=== PATIENT | male | born 1945 | race Caucasian/White ===

== ENCOUNTER 2022-11-12 12:35 | Emergency (ER) | payer SELFPAY ==
[2022-11-12 12:51] VITALS: BP 139/76; PULSE 73; RESP 16; TEMP 36.7; O2SAT 97; BMI 25.7
[2022-11-12 13:58] LABS: Basophils # 0.1 10^3/uL (0.0-0.1); Basophils % 1.1 %; Eosinophils # 0.1 10^3/uL (0.0-0.8); Eosinophils % 1.7 %; Hemoglobin 15.2 g/dL (11.7-16.6); Lymphocytes % 31.3 %; Mean Corpuscular Hemoglobin 30.2 pg (28.0-34.0); Mean Corpuscular Volume 91.3 fl (80-94); Mean Platelet Volume 9.4 fL (7.4-10.4); Monocytes # 0.5 10^3/uL (0.2-0.9); Monocytes % 7.3 %; Neutrophils # 3.68 10^3/uL (1.8-7.7); Neutrophils % 58.4 %; Nucleated Red Blood Cells % 0 %; Platelet Count 211 10^3/cmm (130-400); Red Blood Count 5.04 10^6/uL (4.1-5.3); Red Cell Distribution Width 12.5 % (12.1-15.1); White Blood Count 6.3 10^3/uL (4.0-10.0)
[2022-11-12 14:23] LABS: Alanine Aminotransferase 52 U/L (0-41); Albumin Level 4.3 g/dL (3.5-5.2); Alkaline Phosphatase 96 U/L (40-130); Anion Gap 16.2 (5-19); Aspartate Amino Transferase 24 U/L (0-40); Blood Urea Nitrogen 14 mg/dL (8-23); Calcium 9.1 mg/dL (8.5-10.5); Carbon Dioxide 25 mmol/L (22-29); Chloride 102 mmol/L (98-107); Globulin 2.9 g/dL (1.3-4.6); Glucose 93 mg/dL (65-115); Lipase 22 U/L (13-60); Osmolality Calculated 288 mOsm/kg (285-295); Potassium 4.2 mmol/L (3.5-5.1); Sodium 139 mmol/L (136-145); Total Protein 7.2 g/dL (6.6-8.7)
--- NOTE | 2022-11-12 14:36 | XR_ITS ---
WS: [id number] XR lumbar spine 2-3V* [id number] REASON FOR EXAM: injury FINDINGS: There are 4 lumbar vertebrae without ribs. Mild rotatory scoliosis convex right. Relatively normal lordosis. Mild compression deformity of the first ribbed lumbar vertebrae. Moderate narrowing of the disc space at the lumbosacral junction. No significant listhesis. IMPRESSION: Compression deformity as above. Unknown chronicity. More likely chronic.
--- NOTE | 2022-11-12 14:36 | XR_ITS ---
WS: [id number] XR thoracic spine 3V* [id number] REASON FOR EXAM: injury FINDINGS: Mild thoracic scoliosis convex left. No significant kyphosis. Mild compression deformity of the last rib vertebral body. (Small hypoplastic rib on the left) Disc spaces are intact with minimal narrowing in the midthoracic spine associated with small osteophy jina. IMPRESSION: Mild compression deformity as above. Unknown chronicity. Most likely chronic.
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
== END 2022-11-12 16:10 | disposition home or self-care (01) ==
PROVIDERS: Emergency Provider Emergency Medicine
DX: S29.012A Strain of muscle and tendon of back wall of thorax, initial encounter (principal); V03.00XA Pedestrian on foot injured in collision with car, pick-up truck or van in nontraffic accident, initial encounter
CPT/HCPCS: 36415; 72072; 72100; 80053; 83690; 85025; 99284